=== PATIENT | female | born 1945 | race African-American/Black ===

== ENCOUNTER 2021-08-02 11:57 | Inpatient (IN) | payer MEDICARE, OTHER ==
[~2021-08-02] VITALS: Ht 162.6 cm; Wt 68.0 kg
[2021-08-02] MEDS ORDERED: ONDANSETRON HCL 4MG/2ML INJ IV STA (12:11)
[2021-08-02] MEDS ORDERED: MORPHINE SULFATE 4 MG/ML CPJ (NOT FOR IM USE) IV STA (12:11)
[2021-08-02] MEDS ORDERED: SODIUM CHLORIDE 0.9% 1,000 ML IV ONE (12:15)
[2021-08-02 12:52] LABS: BASOPHILS % 0.6 % (0.0-2.0); EOSINOPHILS % 0.3 % (0.0-5.0); HEMATOCRIT. 49.7 % (36.0-48.0); HEMOGLOBIN. 16.4 g/dL (12.0-16.0); MEAN CORPUSCULAR HEMOGLOBIN 30.2 pg (28.0-32.0); MEAN CORPUSCULAR VOLUME 91.3 fL (81.0-99.0); NEUTROPHILS % 72.1 % (40.0-76.0); PLATELET 295 x1000/uL (130-400); RED BLOOD CELL COUNT 5.45 mill/uL (4.2-5.4); RED CELL DISTRIBUTION WIDTH 14.9 % (11.6-14.6)
[2021-08-02 12:57] LABS: CHLORIDE 108 mEq/L (98-107)
[2021-08-02] MEDS ORDERED: MORPHINE SULFATE 2 MG/ML CPJ (NOT FOR IM USE) IV SCH (13:07)
[2021-08-02 13:27] LABS: PROTHROMBIN TIME 10.3 sec (9.6-11.0)
[2021-08-02 15:28] LABS: AMYLASE 41 IU/L (25-115)
[2021-08-02 17:33] LABS: CLARITY URINE CLEAR (CLEAR); COLOR URINE YELLOW (YELLOW); KETONES URINE TRACE (NEGATIVE); LEUKOCYTE ESTERASE URINE NEGATIVE (NEGATIVE); NITRITE URINE NEGATIVE (NEGATIVE); OCCULT BLOOD URINE NEGATIVE (NEGATIVE); PROTEIN URINE NEGATIVE (NEGATIVE); SPECIFIC GRAVITY URINE 1.007 (1.005-1.030); UROBILINOGEN URINE 0.2 E.U./dL (0.2-1.0)
[2021-08-02] MEDS ORDERED: NALOXONE HCL 0.4MG/ML VIAL IV PRN (22:00)
[2021-08-02] MEDS: MORPHINE SULFATE 2 MG/ML CPJ (NOT FOR IM USE) IV PRN (23:03)
[2021-08-02] MEDS: ONDANSETRON HCL 4MG/2ML INJ IV PRN (23:03)
[2021-08-03 00:25] VITALS: BP 135/78
[2021-08-03] MEDS: ONDANSETRON HCL 4MG/2ML INJ IV PRN ×2 (03:08→21:06)
[2021-08-03] MEDS: MORPHINE SULFATE 2 MG/ML CPJ (NOT FOR IM USE) IV PRN ×4 (03:09→21:07)
[2021-08-03 04:00] VITALS: BP 122/68
[2021-08-03 08:00] VITALS: BP 139/98
[2021-08-03 12:00] VITALS: BP 137/99
[2021-08-03] MEDS ORDERED: ACETAMINOPHEN 325MG TABLET PO PRN (12:30)
[2021-08-03 15:51] VITALS: BP 112/73
[2021-08-03 16:02] LABS: BASOPHILS % 0.4 % (0.0-2.0); EOSINOPHILS % 1.8 % (0.0-5.0); HEMATOCRIT. 45.7 % (36.0-48.0); HEMOGLOBIN. 15.3 g/dL (12.0-16.0); LYMPHOCYTES % 19.4 % (20.0-50.0); MEAN CORPUSCULAR VOLUME 89.6 fL (81.0-99.0); MONOCYTES % 11.8 % (2.0-8.0); NEUTROPHILS % 66.6 % (40.0-76.0); PLATELET 287 x1000/uL (130-400); RED CELL DISTRIBUTION WIDTH 14.8 % (11.6-14.6)
[2021-08-03 16:23] LABS: CHLORIDE 109 mEq/L (98-107)
[2021-08-03 20:00] VITALS: BP 137/72
[2021-08-04] VITALS: BP 130/75
[2021-08-04] MEDS: MORPHINE SULFATE 2 MG/ML CPJ (NOT FOR IM USE) IV PRN ×3 (03:42→20:12)
[2021-08-04 04:00] VITALS: BP 125/71
[2021-08-04] MEDS ORDERED: POTASSIUM CHLORIDE 20MEQ TABLET SR PO SCH (06:45)
[2021-08-04 08:00] VITALS: BP 115/61
[2021-08-04 12:00] VITALS: BP 119/63
[2021-08-04] MEDS: SODIUM CHL 0.9% + KCL 20MEQ/L 1,000 ML IV SCH (14:29)
[2021-08-04 16:00] VITALS: BP 118/62
[2021-08-04 20:00] VITALS: BP 110/56
[2021-08-05] VITALS: BP 121/70
[2021-08-05 04:00] VITALS: BP 129/67
[2021-08-05] MEDS: SODIUM CHL 0.9% + KCL 20MEQ/L 1,000 ML IV SCH ×2 (05:57→22:41)
[2021-08-05 08:00] VITALS: BP 130/71
[2021-08-05] MEDS: MORPHINE SULFATE 2 MG/ML CPJ (NOT FOR IM USE) IV PRN ×2 (08:55→22:41)
[2021-08-05 10:08] LABS: BASOPHILS % 1.1 % (0.0-2.0); EOSINOPHILS % 2.6 % (0.0-5.0); HEMATOCRIT. 42.6 % (36.0-48.0); HEMOGLOBIN. 14.4 g/dL (12.0-16.0); LYMPHOCYTES % 26.4 % (20.0-50.0); MEAN CORPUSCULAR HEMOGLOBIN 30.3 pg (28.0-32.0); MEAN CORPUSCULAR VOLUME 89.6 fL (81.0-99.0); MEAN PLATELET VOLUME 8.7 fl (7.4-10.4); MONOCYTES % 10.9 % (2.0-8.0); PLATELET 293 x1000/uL (130-400); RED BLOOD CELL COUNT 4.76 mill/uL (4.2-5.4); RED CELL DISTRIBUTION WIDTH 14.7 % (11.6-14.6)
[2021-08-05 10:11] LABS: CHLORIDE 111 mEq/L (98-107)
[2021-08-05 12:00] VITALS: BP 131/61
[2021-08-05 16:00] VITALS: BP 140/59
[2021-08-05 20:00] VITALS: BP 127/74
[2021-08-06] VITALS: BP 133/65
[2021-08-06 04:00] VITALS: BP 108/66
[2021-08-06] MEDS: MORPHINE SULFATE 2 MG/ML CPJ (NOT FOR IM USE) IV PRN (05:59)
[2021-08-06 07:45] LABS: BASOPHILS % 0.9 % (0.0-2.0); EOSINOPHILS % 3.3 % (0.0-5.0); HEMATOCRIT. 42.1 % (36.0-48.0); HEMOGLOBIN. 13.9 g/dL (12.0-16.0); LYMPHOCYTES % 28.5 % (20.0-50.0); MEAN CORPUSCULAR HEMOGLOBIN 30.2 pg (28.0-32.0); MEAN CORPUSCULAR VOLUME 91.6 fL (81.0-99.0); MEAN PLATELET VOLUME 8.9 fl (7.4-10.4); MONOCYTES % 12.8 % (2.0-8.0); NEUTROPHILS % 54.5 % (40.0-76.0); PLATELET 271 x1000/uL (130-400); RED CELL DISTRIBUTION WIDTH 14.5 % (11.6-14.6)
[2021-08-06 08:00] VITALS: BP 131/66
[2021-08-06 08:07] LABS: CHLORIDE 111 mEq/L (98-107)
[2021-08-06 12:00] VITALS: BP 149/68
[2021-08-06] MEDS: SODIUM CHL 0.9% + KCL 20MEQ/L 1,000 ML IV SCH (15:00)
[2021-08-06 16:17] VITALS: BP 149/68
== END 2021-08-06 17:25 | disposition home or self-care (01) | DRG 391 ==
LOC: ER 11:57 → 6EST 15:53 → EDBEDREQ 15:56 → ENRESERV 20:52 → 6EST 08-05 19:12
PROVIDERS: ADMIT Internal Medicine; ATTEND Internal Medicine
DX: K57.30 Diverticulosis of large intestine without perforation or abscess without bleeding (principal); K85.90 Acute pancreatitis without necrosis or infection, unspecified; K52.9 Noninfective gastroenteritis and colitis, unspecified; E87.6 Hypokalemia; E87.8 Other disorders of electrolyte and fluid balance, not elsewhere classified; R74.01 Elevation of levels of liver transaminase levels; Z20.822 Contact with and (suspected) exposure to COVID-19
CPT/HCPCS: 36415; 71045; 74176; 76700; 80048; 80053; 80076; 81003; 82150; 83615; 84484; 85025; 87426; 93005; 99291; J2270; J2405; J3480; J7030

== ENCOUNTER 2024-03-13 12:11 | Emergency (ER) | payer MEDICARE, OTHER ==
[~2024-03-13] VITALS: Ht 162.6 cm; Wt 68.0 kg
[2024-03-13 12:39] VITALS: O2SAT 99
[2024-03-13 15:33] LABS: CHLORIDE 108 mEq/L (98-107); POTASSIUM 4.2 mEq/L (3.5-5.1); SODIUM 139 mEq/L (136-145)
[2024-03-13 15:34] LABS: CLARITY URINE TURBID (CLEAR); COLOR URINE YELLOW (YELLOW); GLUCOSE URINE NEGATIVE (NEGATIVE); KETONES URINE NEGATIVE (NEGATIVE); LEUKOCYTE ESTERASE URINE NEGATIVE (NEGATIVE); NITRITE URINE NEGATIVE (NEGATIVE); OCCULT BLOOD URINE NEGATIVE (NEGATIVE); PH URINE 5.5 (4.5-8.0); PROTEIN URINE TRACE (NEGATIVE); SPECIFIC GRAVITY URINE 1.026 (1.005-1.030); UROBILINOGEN URINE 0.2 E.U./dL (0.2-1.0)
[2024-03-13 15:34] LABS: CARBON DIOXIDE 24 mEq/L (21-32)
[2024-03-13 15:35] LABS: CALCIUM 8.6 mg/dL (8.7-10.4); EOSINOPHILS % 1.4 % (0.0-5.0); HEMATOCRIT. 45.9 % (36.0-48.0); HEMOGLOBIN. 14.9 g/dL (12.0-16.0); LYMPHOCYTES % 27.7 % (20.0-50.0); MEAN CORPUSCULAR HEMOGLOBIN 29.1 pg (28.0-32.0); MEAN CORPUSCULAR HGB CONC 32.5 g/dL (31.0-37.0); MEAN CORPUSCULAR VOLUME 89.4 fL (81.0-99.0); MEAN PLATELET VOLUME 8.4 fl (7.4-10.4); MONOCYTES % 12.7 % (2.0-8.0); NEUTROPHILS % 57.2 % (40.0-76.0); PLATELET 428 x1000/uL (130-400); RED BLOOD CELL COUNT 5.13 mill/uL (4.2-5.4); WHITE BLOOD COUNT 9.5 x1000/uL (4.5-11.0)
[2024-03-13 15:39] LABS: CREATININE 0.9 mg/dL (0.6-1.0); GLUCOSE 86 mg/dL (70-105)
[2024-03-13 15:40] LABS: UREA NITROGEN BLOOD 12 mg/dL (9-23)
[2024-03-13 15:41] LABS: ALANINE AMINOTRANSFERASE 49 IU/L (10-49); ALBUMIN 4.3 g/dL (3.2-4.8); ASPARTATE AMINOTRANSFERASE 31 IU/L (<34)
[2024-03-13 15:42] LABS: BILIRUBIN TOTAL 0.4 mg/dL (0.1-1.0); PROTEIN TOTAL 7.3 g/dL (6.0-8.3); PROTHROMBIN TIME 10.9 sec (9.6-11.0)
[2024-03-13] MEDS ORDERED: TOPUD PO (15:49)
[2024-03-13 15:54] LABS: BACTERIA URINE NONE SEEN; RBC URINE 0-2 /hpf (0-2); SQUAMOUS EPITHELIAL CELL URINE 1+ /lpf (RARE/1+); URIC ACID CRYSTALS URINE 3+ /lpf; WBC URINE 0-2 /hpf (0-2)
[2024-03-13] MEDS ORDERED: GUAI237L83 PO (16:07)
[2024-03-13] MEDS: ACETAMINOPHEN 325MG TABLET PO ONE (16:08)
[2024-03-13 16:09] VITALS: BP 133/75; PULSE 84; RESP 14; TEMP 97.8
== END 2024-03-13 16:13 | disposition home or self-care (01) ==
LOC: ER 12:11
DX: B34.9 Viral infection, unspecified (principal); I10 Essential (primary) hypertension; Z20.822 Contact with and (suspected) exposure to COVID-19
CPT/HCPCS: 36415; 71045; 80053; 81003; 83605; 84145; 85025; 87426; 87804; 93005; 99285